=== PATIENT | female | born 1950 | race Caucasian/White ===

== ENCOUNTER → 2016-06-16 | Outpatient (CLI) | payer MEDICARE ==
--- NOTE | 2016-06-16 17:41 | CR ---
EXAMINATION: Cervical spine HISTORY: Neck pain COMPARISON: MRI dated 03/25/2016 TECHNIQUE: Single lateral view FINDINGS: Anterior cervical fusion hardware is noted C5-C6 with early interbody osseous bridging. No fracture or acute osseous abnormality. Bone mineralization is otherwise normal. Prevertebral soft t issues appear normal. IMPRESSION: Anterior cervical fusion hardware at C5-C6.
== END ==
LOC: MW.DI 14:54
PROVIDERS: ATTEND Neurological Surgery
DX: M54.2 Cervicalgia (principal); Z98.1 Arthrodesis status
CPT/HCPCS: 72020; 72020-26

== ENCOUNTER 2020-08-18 07:57 | Emergency (ER) | payer MEDICARE ==
[2020-08-18] MEDS ORDERED: Bacitracin Oint 28.35 GM Tube TOP ONE (08:20)
[2020-08-18] MEDS ORDERED: Bacitracin Oint 28.35 GM Tube ONE (08:20)
--- NOTE | 2020-08-18 08:34 | EDM.PDOC ---
ED HPI GENERAL MEDICAL PROBLEM - General Chief Complaint: General Stated Complaint: BLEEDING Time Seen by Provider: 08/18/20 08:10 - History of Present Illness INITIAL COMMENTS - FREE TEXT/NARRATIVE: HISTORY AND PHYSICAL: History of present illness: This is a 70-year-old female who presents ER today secondary to bleeding from a recently biopsied site on her right labia. Patient reports that she had a cyst that was biopsied by her doctor yesterday afternoon. She reports that since yesterday she is been having oozing from the site that required approximately 4- 5 pantiliners. Patient reports that this morning when she woke up and stood up, a gush of blood came out that was concerning. Patient denies any other symptomatology. Patient denies any recent fevers, shakes, chills, nausea, vomiting, diarrhea, dysuria, frequency, urgency, chest pain, shortness of breath, dizziness. Review of systems: As per history of present illness and below otherwise all systems reviewed and negative. Past medical history: As per history of present illness and as reviewed below otherwise noncontributory. Surgical history: As per history of present illness and as reviewed below otherwise noncontributory. Social history: No reported history of drug abuse. Family history: As per history of present illness and as reviewed below otherwise noncontributory. Physical exam: This patient was seen and evaluated during the 2019 SARS-CoV-2 novel coronavirus pandemic period. Community viral transmission is ongoing at time of this encounter and the emergency department is operating under pandemic response procedures. Constitutional: Patient is oriented to person, place, and time. Appears well- developed and well-nourished. No distress. HEENT: Moist mucous membranes Head: Normocephalic and atraumatic Eyes: Right eye exhibits no discharge. Left eye exhibits no discharge. No scleral icterus Neck: Normal range of motion. No tracheal deviation present. Cardiovascular: Normal rate and regular rhythm. Pulmonary: Effort normal, no respiratory distress. Abdominal: No distention Musculoskeletal: Normal range of motion Neurologic: Alert and oriented to person, place and time. Skin: [place], warm and dry. Psychiatric: Normal mood and affect. Behavior is normal. Judgment and thought content normal. Nursing note and vital signs have been reviewed Patient's ER physical exam is significant for a recently biopsied lesion on the inner right labia majora that is approximately 2 cm in diameter without any active bleeding at this time. There is good eschar tissue as well as good granulation tissue at the lesion. No pulsatile blood is identified. Assessment and plan: The wound was cleaned with saline. Neosporin was applied as well as a Telfa dressing and a 4 x 4 gauze to assist with applying direct pressure on the wound to keep it from getting irritated and bleeding again. At this time, do not think the patient will require any further ER intervention and was reassured that the wound will continue to ooze and bleed over the next 1 to 2 days but should not have any bright red blood or pulsatile bleeding. Patient is instructed to follow-up with her doctor next week for reevaluation. Definitive disposition and diagnosis as appropriate pending reevaluation and review of above. - Related Data Allergies Allergy/AdvReac Type Severity Reaction Status Date / Time sulfamethoxazole Allergy light Verified 08/18/20 08:26 [From Bactrim] headed trimethoprim [From Bactrim] Allergy unkown Verified 08/18/20 08:26 Home Meds: Home Meds Aspirin [[place] Aspirin EC] 81 mg PO DAILY 04/09/15 [History] Lisinopril 10 mg PO DAILY 04/09/15 [History] Rosuvastatin [Crestor] 10 mg PO DAILY 04/09/15 [History] amLODIPine [Norvasc] 2.5 mg PO DAILY 04/09/15 [History] atenoloL [Atenolol] 12.5 mg PO DAILY 04/09/15 [History] Glimepiride 1 mg PO DAILY 08/18/20 [History] Glimepiride 2 mg PO BEDTIME 08/18/20 [History] Past Medical History Cardiovascular History: Reports: High Cholesterol, Hypertension Respiratory History: Reports: None Gastrointestinal History: Reports: Irritable Bowel Syndrome 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 History: Reports: Neurological History: Reports: None Psychiatric History: Reports: None Endocrine/Metabolic History: Reports: Diabetes, Type II, Obesity/BMI 30+ Hematologic History: Reports: None Immunologic History: Reports: None Oncologic (Cancer) History: Reports: None Dermatologic History: Reports: None - Past Surgical History HEENT Surgical History: Reports: Tonsillectomy GI Surgical History: Reports: Cholecystectomy Female Surgical History: Reports: Tubal Ligation Musculoskeletal Surgical History: Reports: Shoulder Surgery ED ROS GENERAL - Review of Systems Review Of Systems: See Below ED EXAM, GENERAL - Physical Exam Exam: See Below Course - Vital Signs Last Recorded V/S: Last Vital Signs Temp 97.3 F 08/18/20 08:13 Pulse 91 08/18/20 08:13 Resp BP 183/72 H 08/18/20 08:13 Pulse Ox 95 08/18/20 08:13 - Orders/Labs/Meds Meds: Medications Discontinued Medications Generic Name Dose Route Start Last Admin Trade Name Winston PRN Reason Stop Dose Admin Bacitracin 28 gm 08/18/20 08:20 Bacitracin Oint 28.35 Gm Tube TOP 08/18/20 08:21 ONETIME ONE Bacitracin Confirm 08/18/20 08:20 Bacitracin Oint 28.35 Gm Tube Administered 08/18/20 08:21 Dose 28.35 gm .ROUTE .STK-MED ONE Departure - Departure Time of Disposition: 08:34 Disposition: Home, Self-Care 01 Condition: Good Clinical Impression: Postoperative vaginal bleeding following genitourinary procedure - Discharge Information Instructions: Wound Care, Adult Referrals: Fiilberto Casarez MD [Primary Care Provider] - Additional Instructions: You were seen and evaluated in the ER today secondary to bleeding from the biopsy site on your right inner labia. At this time there is no active bleeding. We have applied bacitracin to the area as well as a nonadherent dressing. Please continue applying a significant amount of bacitracin and nonadherent dressing to the area to assist with preventing further bleeding. You should expect bleeding for the next 1 to 2 days intermittently as the location of the biopsy itself is located in an area where there could be friction from your labia against it. Please make an appointment to see your doctor sometime next week for reevaluation. Return to the ER if you have any further concerning bleeding. The following information is given to patients seen in the emergency department who are being discharged to home. This information is to outline your options for follow-up care. We provide all patients seen in our emergency department with a follow-up referral. The need for follow-up, as well as the timing and circumstances, are variable depending upon the specifics of your emergency department visit. If you don't have a primary care physician on staff, we will provide you with a referral. We always advise you to contact your personal physician following an emergency department visit to inform them of the circumstance of the visit and for follow-up with them and/or the need for any referrals to a consulting specialist. The emergency department will also refer you to a specialist when appropriate. This referral assures that you have the opportunity for follow-up care with a specialist. All of these measure are taken in an effort to provide you with o ptimal care, which includes your follow-up. Under all circumstances we always encourage you to contact your private physician who remains a resource for coordinating your care. When calling for follow-up care, please make the office aware that this follow-up is from your recent emergency room visit. If for any reason you are refused follow-up, please contact the [facility] Emergency Department at and asked to speak to the emergency department charge nurse. [facility] [address] [place] [address] [place] [address] Sepsis Event Note (ED) - Evaluation Sepsis Screening Result: No Definite Risk - Focused Exam Vital Signs: Vital Signs Temp Pulse BP Pulse Ox 08/18/20 08:13 97.3 F 91 183/72 H 95
[2020-08-18 08:47] VITALS: BP 182/64; PULSE 94
== END 2020-08-18 08:47 | disposition home or self-care (01) ==
LOC: MW.ED 07:57
DX: N99.820 Postprocedural hemorrhage of a genitourinary system organ or structure following a genitourinary system procedure (principal); I10 Essential (primary) hypertension; E78.00 Pure hypercholesterolemia, unspecified; E11.9 Type 2 diabetes mellitus without complications; E66.9 Obesity, unspecified; Z68.33 Body mass index [BMI] 33.0-33.9, adult; Z88.2 Allergy status to sulfonamides; Z79.82 Long term (current) use of aspirin; Z79.84 Long term (current) use of oral hypoglycemic drugs; Z79.899 Other long term (current) drug therapy
CPT/HCPCS: 99283; A9270

== ENCOUNTER 2023-03-03 18:35 | Emergency (ER) | payer MEDICARE ==
[2023-03-03 20:20] LABS: CORONAVIRUS COVID-19 NAA POSITIVE (NEGATIVE); INFLUENZA A NAA NEGATIVE (NEGATIVE); INFLUENZA B NAA NEGATIVE (NEGATIVE); RESPIRATORY SYNCYTIAL VIR NAA NEGATIVE (NEGATIVE)
[2023-03-03 22:57] VITALS: BP 156/61; PULSE 92
== END 2023-03-03 22:30 | disposition home or self-care (01) ==
LOC: MW.ED 18:35
DX: U07.1 COVID-19 (principal); E11.9 Type 2 diabetes mellitus without complications; E66.9 Obesity, unspecified; I10 Essential (primary) hypertension; E78.00 Pure hypercholesterolemia, unspecified; Z79.82 Long term (current) use of aspirin; Z79.4 Long term (current) use of insulin; Z79.899 Other long term (current) drug therapy; Z88.2 Allergy status to sulfonamides; Z88.5 Allergy status to narcotic agent; Z88.8 Allergy status to other drugs, medicaments and biological substances
CPT/HCPCS: 0241U; 93971; 99284; 99283